=== PATIENT | female | born 1945 | race Caucasian/White ===

== ENCOUNTER 2025-07-05 09:41 | Emergency (ER) | payer OTHER ==
[~2025-07-05] VITALS: Ht 160 cm; Wt 54.4 kg
--- NOTE | 2025-07-05 09:52 | ED.PDOC ---
History of Present Illness HPI Comments 80 year old female with PMHx breast cancer, HTN, CHF, asthma, presents to the ED via EMS with a chief complaint of ALOC onset today (07/05/25). Per EMS, patient has been experiencing generalized weakness and dizziness for the past few months. She woke up this morning, went to the restroom, was not able to get up due to weakness, 911 was called. Upon EMS arrival, BP was 68/40, 500ccs IVF given in route to ED, BP improved to 118 systolic. Patient is a poor historian. No other symptoms or modifying factors present at this time. Time Seen by MD: 09:45 Reviewed Notes: Medications, Allergies Allergies: Coded Allergies: Morphine (Verified Allergy, Unknown, 07/05/25) Information Source: Patient, Emergency Med Personnel Mode of Arrival: EMS Severity: Moderate Timing: Months Duration: Since onset Prehospital treatment: IVF Past Medical History PAST MEDICAL HISTORY: Asthma, Cancer, CHF, HTN Surgical History: Denies all surgeries MACHINE TECHNICIAN History: No Pertinent MACHINE TECHNICIAN History Family History Family History: Reviewed,noncontributory to illness, No family hx of Cancer, No family hx of DM, No family hx of Heart alfredo, No family hx of HTN, No family hx ofKidney alfredo, No family hx of Liver alfredo, No family hx of Lung alfredo, No family hx of Stroke Social History Smoker: Non-Smoker Alcohol: Denies ETOH Use Drugs: Denies Drug Use Lives In: Home Constitutional: reports: weakness; denies: chills, diaphoresis, fatigue, fever, malaise, sweats, others EENTM: denies: blurred vision, double vision, ear bleeding, ear discharge, ear drainage, ear pain, ear ringing, eye pain, eye redness, hearing loss, mouth pain, mouth swelling, nasal discharge, nose bleeding, nose congestion, nose pain, photophobia, tearing, throat pain, throat swelling, voice changes, others Respiratory: denies: cough, hemoptysis, orthopnea, SOB at rest, shortness of breath, SOB with excertion, stridor, wheezing, others Cardiovascular: denies: chest pain, dizzy spells, diaphoresis, Dyspnea on exertion, edema, irregular heart beat, left arm pain, lightheadedness, palpitations, PND, syncope, others Gastrointestinal: denies: abdomen distended, abdominal pain, blood streaked bowels, constipated, diarrhea, dysphagia, difficulty swallowing, hematemesis, melena, nausea, poor appetite, poor fluid intake, rectal bleeding, rectal pain, vomiting, others Genitourinary: denies: abnormal vagina bleeding, burning, dyspareunia, dysuria, flank pain, frequency, hematuria, incontinence, pain, , vagina discharge, urgency, others Neurological: reports: dizziness, weakness; denies: fainting, headache, left sided numbness, left sided weakness, numbness, paresthesia, pre-existing deficit, right sided numbness, right sided weakness, seizure, speech problems, tingling, tremors, others Musculoskeletal: denies: back pain, gout, joint pain, joint swelling, muscle pain, muscle stiffness, neck pain, others Integumetry: denies: bruises, change in color, change in hair/nails, dryness, laceration, lesions, lumps, rash, wounds, others Allergic/Immunocompromised: denies: Difficulty Healing, Frequent Infections, Hives, Itching, others Hematologic/Lymphatic: denies: anemia, blood clots, easy bleeding, easy bruising, swollen glands, others Endocrine: denies: excessive hunger, excessive sweating, excessive thirst, excessive urination, flushing, intolerance to cold, intolerance to heat, unexplained weight gain, unexplained weight loss, others Psychiatric: denies: anxiety, bipolar disorder, depression, hopeless, panic disorder, schizophrenia, sleepless, suicidal, others All Other Systems: Reviewed and Negative Physical Exam General Appearance: Normal HEENT: Normal ENT Inspection, Pharynx Normal, TMs Normal Neck: Full Range of Motion, Non-Tender, Normal, Normal Inspection Respiratory: Chest Non-Tender, Lungs Clear, No Accessory Muscle Use, No Respiratory Distress, Normal Breath Sounds Cardiovascular: No Edema, No JVD, No Murmur, No Gallop, Normal Peripheral Pulses, Regular Rate/Rhythm Breast Exam: Deferred Gastrointestinal: No Organomegaly, Non Tender, No Pulsatile Mass, Normal Bowel Sounds, Soft Genitalia: Deferred Pelvic: Deferred Rectal: Deferred Extremities: No calf tenderness, Normal capillary refill, Normal inspection, Normal range of motion, Non-tender, No pedal edema Musculoskeletal : Apperance: Normal Neurologic: Alert, home theater expert II-XII nml as Tested, No Motor Deficits, Normal Affect, Normal Mood, No Sensory Deficits Cerebellar Function: Normal Reflexes: Normal Skin: Dry, Normal Color, Warm Lymphatic: No Adenopathy Was a procedure done? Was a procedure done?: No Differential Dx Considerations may include: ACS, CVA, viral syndrome, electrolyte abnormality, sepsis, X-Ray, Labs, Meds, VS Vital Signs Date Time Temp Pulse Resp B/P (MAP) Pulse Ox O2 Delivery O2 Flow Rate FiO2 07/05/25 09:46 71 07/05/25 09:45 98.0 69 14 105/50 100 98.0 Lab Test 07/05/25 10:21 07/05/25 09:59 Range/Units White Blood Count 9.0 4.4-10.8 10^3/uL Red Blood Count 3.76 L 4.0-5.20 10^6/uL Hemoglobin 11.2 L 12.2-16.2 g/dL Hematocrit 34.9 L 36.0-46.0 % Mean Corpuscular Volume 92.8 80.0-100.0 fL Mean Corpuscular Hemoglobin 29.7 28.0-32.0 pg Mean Corpuscular Hemoglobin Concent 32.0 32.0-36.0 g/dL Red Cell Distribution Width 16.8 H 11.8-14.3 % Platelet Count 373 140-450 10^3/uL Mean Platelet Volume 7.3 6.9-10.8 fL Neutrophils (%) (Auto) 78.9 37.0-80.0 % Lymphocytes (%) (Auto) 9.6 L 10.0-50.0 % Monocytes (%) (Auto) 10.1 0.0-12.0 % Eosinophils (%) (Auto) 0.8 0.0-7.0 % Basophils (%) (Auto) 0.6 0.0-2.0 % Neutrophils # (Auto) 7.1 1.6-8.6 10 ^3/uL Lymphocytes # (Auto) 0.9 0.4-5.4 10 ^3/uL Monocytes # (Auto) 0.9 0-1.3 10 ^3/uL Eosinophils # (Auto) 0.1 0-0.8 10 ^3/uL Basophils # (Auto) 0.1 0-0.2 10 ^3/uL Nucleated Red Blood Cells 0.0 % Sodium Level 138 136-145 mmol/L Potassium Level 4.5 3.5-5.1 mmol/L Chloride Level 105 98-107 mmol/L Carbon Dioxide Level 22 20-31 mmol/L Anion Gap 11 5-15 Blood Urea Nitrogen 16 9-23 mg/dL Creatinine 1.13 H 0.550-1.02 mg/dL Glomerular Filtration Rate Calc 49 >90 mL/min BUN/Creatinine Ratio 14.2 10.0-20.0 Serum Glucose 168 H 74-106 mg/dL Lactic Acid Level 1.5 0.4-2.0 mmol/L Calcium Level 9.9 8.7-10.4 mg/dL Troponin I High Sensitivity 25 </=34 ng/L POC Glucose 126 H 70-106 mg/dl Current Medications Medications (Trade) Dose Ordered Sig/Vinay Route Start Time Stop Time Status Last Admin Sodium Chloride 1,000 ml @ 1,000 mls/hr Q1H ONCE IV 07/05/25 10:00 07/05/25 10:59 DC 07/05/25 10:00 [place] [address] Ph: [phone] DIAGNOSTIC IMAGING Diagnostic Imaging Report : [id number] Signed PATIENT: KIRSTIE RUSSELL ACCT: [id number] UNIT: [id number] : 1945 LOC: ER ROOM / BED: / AGE / SEX: 80 / F ADM STATUS: REG ER SERVICE ORDERING PHYSICIAN: JOSSUE SIERRA MD PROCEDURE(s): CXRP - CHEST PORTABLE REASON: weakness ORDER NUMBER(s): [id number], ACCESSION NUMBER(s): [id number] EXAM: XY CHEST PORTABLE Indication: weakness Technique: Single frontal view of the chest was obtained Comparison: None FINDINGS: Lines and Tubes: None Lungs: Diffuse interstitial opacities. Pleura: No effusion. No pneumothorax. Cardiomediastinal contours: Mild cardiomegaly. Bones: No acute osseous abnormality. IMPRESSION: Diffuse interstitial opacities with mild cardiomegaly may reflect atypical infection or pulmonary edema. ATED BY: COSTA ROBBINS MD DICTATED DATE/TIME: 07/05/25 1030 SIGNED BY: COSTA ROBBINS MD SIGNED DATE/TIME: 07/05/25 1030 CC: Time of 1ST Reevaluation: 10:15 Reevaluation 1ST: Unchanged Patient Education/Counseling: Diagnosis, Treatment, Prognosis Family Education/Counseling: No Family Present SEPSIS Sepsis Screen Physician Orders Urinalysis (07/05/25 09:47) Blood Culture (07/05/25 09:47) Electrocardigram (07/05/25 09:47) Electrocardigram (07/05/25 10:47) Electrocardigram (07/05/25 12:47) Chest Portable (07/05/25 09:51) Cefepime 2gm/50ml Ns (Maxipime 2gm/50ml) (07/05/25 13:45) Azithromycin Tablet (Zithromax Tablet) (07/05/25 13:45) Vancomycin (07/05/25 13:45) Vital Signs Date Time Temp Pulse Resp B/P (MAP) Pulse Ox O2 Delivery O2 Flow Rate FiO2 07/05/25 09:46 71 07/05/25 09:45 98.0 69 14 105/50 100 98.0 Laboratory Tests Test 07/05/25 10:21 Lactic Acid Level 1.5 mmol/L (0.4-2.0) White Blood Count 9.0 10^3/uL (4.4-10.8) Medications Medications Dose Ordered Sig/Vinay Route Start Time Stop Time Status Last Admin Dose Admin Sodium Chloride 1,000 ml @ 1,000 mls/hr Q1H ONCE IV 07/05/25 10:00 07/05/25 10:59 DC 07/05/25 10:00 Departure 1 Departure Time of Disposition: 13:45 (Patient with generalized weakness however patient is not septic. Mildly volume overloaded and with a history of CHF so we will not give the full fluid bolus.) Impression: Primary Impression: Generalized weakness Additional Impression: Near syncope Disposition: ADMITTED INPATIENT Admit to: Tele Condition: Guarded Critical Care Note Critical Care Time?: Yes Critical care comment: Patient with concern for ACS, CVA, viral syndrome. Authorized and Performed by: Jossue Sierra MD Total critical care time: Approximately 39 minutes Due to a high probability of clinically significant, life threatening deterioration, the patient required my highest level of preparedness to intervene emergently and I personally spent this critical care time directly and personally managing the patient. This critical care time included obtaining a history; examining the patient; pulse oximetry; ordering and review of studies; arranging urgent treatment with development of a management plan; evaluation of patient's response to treatment; frequent reassessment; and, discussions with other providers. This critical care time was performed to assess and manage the high probability of imminent, life-threatening deterioration that could result in multi-organ failure. It was exclusive of separately billable procedures and treating other patients and teaching time. Please see my other sections and the rest of the note for further information on patient assessment and treatment. Stability Stability form required: No Heart Score Heart Score: Heart Score Response (Comments) Value History N/A 0 EKG N/A 0 Age N/A 0 Risk Factors N/A 0 Troponin N/A 0 Total 0 I personally scribed for JOSSUE SIERRA MD ([email or web address]) on 07/05/25 at 09:51. Electronically submitted by Lindsey Cash ([email or web address]). I personally scribed for JOSSUE SIERRA MD ([email or web address]) on 07/05/25 at 12:13. Electronically submitted by Lindsey Cash ([email or web address]). JOSSUE SIERRA MD Jul 05, 2025 09:51
[2025-07-05] MEDS: SODIUM CHLORIDE 0.9% 1,000 ML IV ONE (10:00)
--- NOTE | 2025-07-05 10:32 | DVH ---
EXAM: XY CHEST PORTABLE Indication: weakness Technique: Single frontal view of the chest was obtained Comparison: None FINDINGS: Lines and Tubes: None Lungs: Diffuse interstitial opacities. Pleura: No effusion. No pneumothorax. Cardiomediastinal contours: Mild cardiomegaly. Bones: No acute osseous abnormality. IMPRESSION: Diffuse interstitial opacities with mild cardiomegaly may reflect atypical infection or pulmonary mayo ma.
[2025-07-05 10:44] LABS: Hematocrit 34.9 % (36.0-46.0); Hemoglobin 11.2 g/dL (12.2-16.2); Mean Corpuscular Hemoglobin 29.7 pg (28.0-32.0); Mean Corpuscular Volume 92.8 fL (80.0-100.0); Nucleated Red Blood Cells % 0.0 %
[2025-07-05 11:12] LABS: Anion Gap 11 (5-15); Carbon Dioxide 22 mmol/L (20-31); Chloride 105 mmol/L (98-107); Potassium 4.5 mmol/L (3.5-5.1); Sodium 138 mmol/L (136-145)
[2025-07-05 11:13] LABS: Calcium 9.9 mg/dL (8.7-10.4)
[2025-07-05 11:18] LABS: BUN/Creatinine Ratio 14.2 (10.0-20.0); Blood Urea Nitrogen 16 mg/dL (9-23)
[2025-07-05 11:19] LABS: Glucose 168 mg/dL (74-106)
--- NOTE | 2025-07-05 13:28 | ECG ---
[facility] Test Date: 2025-07-05 Test Time: 09:46:13 Pat Name: KIRSTIE RUSSELL Department: [facility] ED Patient ID: [id number] Room: Gender: F Residential Air Sealing Technician: LYNN : 1945 Requested By: JOSSUE DOOLEY Order Number: [id number] Reading MD: Genaro Stoddard Measurements Intervals [place] Rate: 71 P: 0 NH: 57 QRS: 137 QRSD: 143 T: 64 QT: 415 QTc: 451 Interpretive Statements Ventricular-paced complexes No further rhythm analysis attempted due to paced rhythm Consider right atrial enlargement Nonspecific intraventricular conduction delay Nonspecific repol abnrm, anterolateral leads Baseline wander in lead(s) V2 Electronically Signed On 07-12-2025 13:42:45 PDT by Genaro Stoddard Please click the below link to view image of tracing.
[2025-07-05] MEDS: AZITHROMYCIN 250 MG TAB PO ONE (15:20)
[2025-07-05] MEDS: VANCOMYCIN 1GM/250ML KIT 250 ML IV ONE (15:30)
[2025-07-05 18:05] VITALS: BP 144/71; TEMP 97.8
[2025-07-05 18:06] VITALS: PULSE 74; RESP 22; O2SAT 97
[2025-07-05] MEDS: CEFEPIME 2GM/50ML NS 50 ML IV ONE (18:09)
== END 2025-07-05 18:14 | disposition short-term general hospital (02) ==
LOC: ER 09:41 → EDBD 09:41 → ER 18:14
DX: R53.1 Weakness (principal); R55 Syncope and collapse; I11.0 Hypertensive heart disease with heart failure; I50.9 Heart failure, unspecified; J45.909 Unspecified asthma, uncomplicated; Z88.5 Allergy status to narcotic agent
CPT/HCPCS: 36415; 71045; 80048; 82947; 83605; 84484; 85025; 87040; 93005; 96361; 96365; 99285; J3373; J7030; 82962; J0692